=== PATIENT | male | born 1940 | race Caucasian/White ===

== ENCOUNTER 2016-05-22 13:01 | Inpatient (IN) | payer MEDICARE, BC ==
[~2016-05-22] VITALS: Ht 172.7 cm; Wt 75.7 kg
[2016-05-22] MEDS ORDERED: MAG HYDROX/AL HYDROX/SIMETH 30 ML UDC PO PRN (13:30)
[2016-05-22] MEDS ORDERED: MAGNESIUM HYDROXIDE 30 ML UDC PO PRN (13:30)
[2016-05-22] MEDS ORDERED: SIMV5TAB6 PO (13:54)
[2016-05-22] MEDS ORDERED: ASPI81TA2 PO (13:54)
[2016-05-22] MEDS ORDERED: AMLO2.5T PO (13:54)
[2016-05-22] MEDS ORDERED: QUET25TA PO ×2 (14:09)
[2016-05-22] MEDS ORDERED: TERA2CAP4 PO (14:09)
[2016-05-22] MEDS ORDERED: OLAN2.5T3 PO (14:09)
[2016-05-22 16:00] VITALS: BP 109/66
[2016-05-22 19:57] VITALS: BP 138/86
[2016-05-22] MEDS: QUETIAPINE FUMARATE 25 MG TABLET PO SCH (21:42)
[2016-05-22] MEDS: SIMVASTATIN 10 MG TABLET PO SCH (21:47)
[2016-05-22] MEDS: TERAZOSIN HCL 5 MG CAPSULE PO SCH (21:51)
[2016-05-22] MEDS: LORAZEPAM 0.5 MG TABLET PO PRN (23:26)
[2016-05-22] MEDS: TEMAZEPAM 7.5 MG CAPSULE PO PRN (23:27)
[2016-05-23 07:51] LABS: ALBUMIN 4.5 g/dL (3.4-5.0); BILIRUBIN,TOTAL 0.6 mg/dL (0.2-1.0); CALCIUM, SERUM 9.3 mg/dL (8.5-10.1); POTASSIUM 4.7 mmol/L (3.5-5.1); TOTAL PROTEIN, SERUM 7.6 g/dL (6.4-8.2)
[2016-05-23 08:00] VITALS: BP 135/84
[2016-05-23] MEDS: AMLODIPINE BESYLATE 2.5 MG TABLET PO SCH (08:01)
[2016-05-23] MEDS: VENLAFAXINE XR 37.5 MG CAP.SR.24H PO SCH (08:02)
[2016-05-23] MEDS: ASPIRIN 81 MG TAB.CHEW PO SCH (08:02)
[2016-05-23] MEDS: LORAZEPAM 0.5 MG TABLET PO PRN ×2 (08:02→23:02)
[2016-05-23 16:00] VITALS: BP 127/83
[2016-05-23 19:45] VITALS: BP 136/80
[2016-05-23] MEDS: TERAZOSIN HCL 5 MG CAPSULE PO SCH (21:17)
[2016-05-23] MEDS: QUETIAPINE FUMARATE 25 MG TABLET PO SCH (21:17)
[2016-05-23] MEDS: SIMVASTATIN 10 MG TABLET PO SCH (21:18)
[2016-05-23] MEDS: TEMAZEPAM 7.5 MG CAPSULE PO PRN (21:18)
[2016-05-23] MEDS: ACETAMINOPHEN 325 MG TABLET PO PRN (21:19)
[2016-05-24 07:04] LABS: BASOPHILS % (AUTO) 0.4 % (0.0-2.0); DIFF TOTAL % 100 %; EOSINOPHILS # (AUTO) 0.1 /CMM (0.0-0.7); EOSINOPHILS % (AUTO) 0.9 % (0.0-6.0); HEMATOCRIT 42 % (39-51); HEMOGLOBIN 13.9 g/dL (13.5-17.5); LYMPHOCYTES # (AUTO) 1.4 /CMM (0.8-4.8); LYMPHOCYTES % (AUTO) 14.5 % (20.0-44.0); MEAN CORPUSCULAR HEMOGLOBIN 30 PG (26.0-33.0); MEAN CORPUSCULAR HGB CONC 33 g/dl (31.0-36.0); MEAN CORPUSCULAR VOLUME 89 fL (80-96); MONOCYTES # (AUTO) 0.7 /CMM (0.1-1.30); MONOCYTES % (AUTO) 7.4 % (2.0-12.0); NEUTROPHILS # (AUTO) 7.2 /CMM (1.8-8.9); NEUTROPHILS % (AUTO) 76.8 % (43.0-81.0); PLATELET COUNT (AUTO) 294 /CMM (150-450); RED BLOOD CELL COUNT(AUTO) 4.69 MIL/uL (4.5-6.0); WHITE BLOOD COUNT (AUTO) 9.3 K/uL (4.3-11.0)
[2016-05-24 07:22] LABS: CREATININE 2.3 mg/dL (0.6-1.3); POTASSIUM 4.7 mmol/L (3.5-5.1)
[2016-05-24 08:00] VITALS: BP 112/72
[2016-05-24] MEDS: VENLAFAXINE XR 37.5 MG CAP.SR.24H PO SCH (09:00)
[2016-05-24] MEDS: ASPIRIN 81 MG TAB.CHEW PO SCH (09:00)
[2016-05-24] MEDS ORDERED: QUETIAPINE FUMARATE 25 MG TABLET PO SCH (09:00)
[2016-05-24] MEDS: AMLODIPINE BESYLATE 2.5 MG TABLET PO SCH (09:00)
[2016-05-24] MEDS ORDERED: HALOPERIDOL LACTATE INJ 5 MG/ML VIAL IM ONE (09:30)
[2016-05-24] MEDS ORDERED: diphenhydrAMINE HCL 50 MG/ML VIAL IM ONE (09:30)
[2016-05-24] MEDS ORDERED: LORAZEPAM INJ 2 MG/ML VIAL IM ONE (09:30)
[2016-05-24 16:00] VITALS: BP 152/66
[2016-05-24] MEDS: QUETIAPINE FUMARATE 25 MG TABLET PO SCH (17:00)
[2016-05-24 20:06] VITALS: BP 137/82
[2016-05-24 20:54] LABS: ADD UA MICROSCOPIC NO; KETONES,URINE NEGATIVE (NEGATIVE); LEUKOCYTE ESTERASE ,URINE NEGATIVE (NEGATIVE); PH,URINE 5.5 (5.0-8.0)
[2016-05-24 20:59] LABS: CANNABINOID, URINE NEGATIVE (NEGATIVE); PHENCYCLIDINE SCREEN,URINE NEGATIVE (NEGATIVE)
[2016-05-24 21:05] LABS: CREATININE, URINE 388.3 MG/DL (30.0-125.0)
[2016-05-24] MEDS: TERAZOSIN HCL 5 MG CAPSULE PO SCH (21:42)
[2016-05-24] MEDS: SIMVASTATIN 10 MG TABLET PO SCH (21:43)
[2016-05-25 06:51] LABS: CALCIUM, SERUM 8.8 mg/dL (8.5-10.1); CREATININE 1.5 mg/dL (0.6-1.3); POTASSIUM 4.5 mmol/L (3.5-5.1)
[2016-05-25 08:00] VITALS: BP 123/74
[2016-05-25] MEDS: CYANOCOBALAMIN 1,000 MCG/ML VIAL IM SCH (09:00)
[2016-05-25] MEDS: ASPIRIN 81 MG TAB.CHEW PO SCH (09:00)
[2016-05-25] MEDS: QUETIAPINE FUMARATE 25 MG TABLET PO SCH ×3 (09:00→17:00)
[2016-05-25] MEDS: AMLODIPINE BESYLATE 2.5 MG TABLET PO SCH (09:00)
[2016-05-25] MEDS: VENLAFAXINE XR 37.5 MG CAP.SR.24H PO SCH (09:00)
[2016-05-25 16:10] VITALS: BP 135/75
[2016-05-25 20:07] VITALS: BP 128/75
[2016-05-25] MEDS: TEMAZEPAM 7.5 MG CAPSULE PO PRN (21:19)
[2016-05-25] MEDS: SIMVASTATIN 10 MG TABLET PO SCH (21:19)
[2016-05-25] MEDS: TERAZOSIN HCL 5 MG CAPSULE PO SCH (21:19)
[2016-05-25] MEDS: ACETAMINOPHEN 325 MG TABLET PO PRN (21:20)
[2016-05-26 08:00] VITALS: BP 111/62
[2016-05-26] MEDS: CYANOCOBALAMIN 1,000 MCG/ML VIAL IM SCH (08:28)
[2016-05-26] MEDS: QUETIAPINE FUMARATE 25 MG TABLET PO SCH ×3 (08:28→17:34)
[2016-05-26] MEDS: VENLAFAXINE XR 37.5 MG CAP.SR.24H PO SCH (08:28)
[2016-05-26] MEDS: AMLODIPINE BESYLATE 2.5 MG TABLET PO SCH (08:29)
[2016-05-26] MEDS: ASPIRIN 81 MG TAB.CHEW PO SCH (08:29)
[2016-05-26] MEDS: LORAZEPAM 0.5 MG TABLET PO PRN (08:30)
[2016-05-26 09:48] LABS: CALCIUM, SERUM 8.2 mg/dL (8.5-10.1); CREATININE 1.1 mg/dL (0.6-1.3); PHOSPHORUS 3.2 mg/dL (2.5-4.9)
[2016-05-26 14:11] LABS: URINE SODIUM, RANDOM 60 mmol/l (40-220)
[2016-05-26 16:00] VITALS: BP 132/74
[2016-05-26 20:00] VITALS: BP 119/71
[2016-05-26] MEDS: SIMVASTATIN 10 MG TABLET PO SCH (21:19)
[2016-05-26] MEDS: TERAZOSIN HCL 5 MG CAPSULE PO SCH (21:19)
[2016-05-27 07:29] LABS: CALCIUM, SERUM 8.5 mg/dL (8.5-10.1); CREATININE 1.2 mg/dL (0.6-1.3); POTASSIUM 4.7 mmol/L (3.5-5.1)
[2016-05-27 08:00] VITALS: BP 114/71
[2016-05-27] MEDS: CYANOCOBALAMIN 1,000 MCG/ML VIAL IM SCH (09:41)
[2016-05-27] MEDS: VENLAFAXINE XR 37.5 MG CAP.SR.24H PO SCH (09:42)
[2016-05-27] MEDS: ASPIRIN 81 MG TAB.CHEW PO SCH (09:42)
[2016-05-27] MEDS: AMLODIPINE BESYLATE 2.5 MG TABLET PO SCH (09:42)
[2016-05-27] MEDS: QUETIAPINE FUMARATE 25 MG TABLET PO SCH ×3 (09:42→16:27)
[2016-05-27 16:00] VITALS: BP 121/74
[2016-05-27 20:00] VITALS: BP 113/72
[2016-05-27] MEDS: TERAZOSIN HCL 5 MG CAPSULE PO SCH (21:40)
[2016-05-27] MEDS: SIMVASTATIN 10 MG TABLET PO SCH (21:41)
[2016-05-28 08:00] VITALS: BP 117/74
[2016-05-28 08:39] LABS: BASOPHILS % (AUTO) 0.4 % (0.0-2.0); DIFF TOTAL % 100 %; EOSINOPHILS # (AUTO) 0.1 /CMM (0.0-0.7); EOSINOPHILS % (AUTO) 1.8 % (0.0-6.0); HEMATOCRIT 42 % (39-51); HEMOGLOBIN 14.1 g/dL (13.5-17.5); LYMPHOCYTES # (AUTO) 1.4 /CMM (0.8-4.8); LYMPHOCYTES % (AUTO) 24.6 % (20.0-44.0); MEAN CORPUSCULAR HEMOGLOBIN 30 PG (26.0-33.0); MEAN CORPUSCULAR HGB CONC 34 g/dl (31.0-36.0); MEAN CORPUSCULAR VOLUME 88 fL (80-96); MONOCYTES # (AUTO) 0.5 /CMM (0.1-1.30); NEUTROPHILS # (AUTO) 3.8 /CMM (1.8-8.9); NEUTROPHILS % (AUTO) 65.2 % (43.0-81.0); PLATELET COUNT (AUTO) 225 /CMM (150-450); RED BLOOD CELL COUNT(AUTO) 4.74 MIL/uL (4.5-6.0); WHITE BLOOD COUNT (AUTO) 5.8 K/uL (4.3-11.0)
[2016-05-28 08:44] LABS: CALCIUM, SERUM 8.4 mg/dL (8.5-10.1); CREATININE 1.1 mg/dL (0.6-1.3); PHOSPHORUS 3.1 mg/dL (2.5-4.9); POTASSIUM 4.2 mmol/L (3.5-5.1)
[2016-05-28] MEDS: CYANOCOBALAMIN 1,000 MCG/ML VIAL IM SCH (09:03)
[2016-05-28] MEDS: QUETIAPINE FUMARATE 25 MG TABLET PO SCH ×3 (09:04→17:00)
[2016-05-28] MEDS: VENLAFAXINE XR 37.5 MG CAP.SR.24H PO SCH (09:05)
[2016-05-28] MEDS: AMLODIPINE BESYLATE 2.5 MG TABLET PO SCH (09:06)
[2016-05-28] MEDS: ASPIRIN 81 MG TAB.CHEW PO SCH (09:10)
[2016-05-28 16:00] VITALS: BP 132/71
[2016-05-28 18:50] VITALS: BP 117/74
[2016-05-28 20:00] VITALS: BP 110/70
[2016-05-28] MEDS: TERAZOSIN HCL 5 MG CAPSULE PO SCH (20:50)
[2016-05-28] MEDS: SIMVASTATIN 10 MG TABLET PO SCH (20:51)
[2016-05-29 08:00] VITALS: BP 128/76
[2016-05-29] MEDS: VENLAFAXINE XR 37.5 MG CAP.SR.24H PO SCH (08:26)
[2016-05-29] MEDS: CYANOCOBALAMIN 1,000 MCG/ML VIAL IM SCH (08:26)
[2016-05-29] MEDS: ASPIRIN 81 MG TAB.CHEW PO SCH (08:26)
[2016-05-29] MEDS: AMLODIPINE BESYLATE 2.5 MG TABLET PO SCH (08:27)
[2016-05-29] MEDS: QUETIAPINE FUMARATE 25 MG TABLET PO SCH (08:27)
[2016-05-29] MEDS: QUETIAPINE FUMARATE 100 MG TABLET PO SCH ×2 (12:59→16:23)
[2016-05-29 15:52] VITALS: BP_SYST 140; BP_SYST 149; BP_DIAS 75
[2016-05-29 19:49] VITALS: BP 139/79
[2016-05-29] MEDS: TERAZOSIN HCL 5 MG CAPSULE PO SCH (21:45)
[2016-05-29] MEDS: TEMAZEPAM 7.5 MG CAPSULE PO PRN (21:45)
[2016-05-29] MEDS: SIMVASTATIN 10 MG TABLET PO SCH (21:45)
[2016-05-30 08:00] VITALS: BP 129/70
[2016-05-30] MEDS: QUETIAPINE FUMARATE 100 MG TABLET PO SCH ×3 (08:34→18:00)
[2016-05-30] MEDS: CYANOCOBALAMIN 1,000 MCG/ML VIAL IM SCH (08:34)
[2016-05-30] MEDS: ASPIRIN 81 MG TAB.CHEW PO SCH (08:34)
[2016-05-30] MEDS: AMLODIPINE BESYLATE 2.5 MG TABLET PO SCH (08:35)
[2016-05-30] MEDS: VENLAFAXINE XR 37.5 MG CAP.SR.24H PO SCH (08:35)
[2016-05-30 16:00] VITALS: BP 152/87
[2016-05-30 19:44] VITALS: BP 125/82
[2016-05-30] MEDS: TERAZOSIN HCL 5 MG CAPSULE PO SCH (21:45)
[2016-05-30] MEDS: SIMVASTATIN 10 MG TABLET PO SCH (21:47)
[2016-05-30] MEDS: TEMAZEPAM 7.5 MG CAPSULE PO PRN (22:24)
[2016-05-31 08:00] VITALS: BP 112/63
[2016-05-31] MEDS: ASPIRIN 81 MG TAB.CHEW PO SCH (08:09)
[2016-05-31] MEDS: QUETIAPINE FUMARATE 100 MG TABLET PO SCH ×3 (08:09→16:55)
[2016-05-31] MEDS: VENLAFAXINE XR 37.5 MG CAP.SR.24H PO SCH (08:09)
[2016-05-31] MEDS: AMLODIPINE BESYLATE 2.5 MG TABLET PO SCH (08:10)
[2016-05-31] MEDS: CYANOCOBALAMIN 1,000 MCG/ML VIAL IM SCH (08:11)
[2016-05-31 16:00] VITALS: BP 143/64
[2016-05-31 20:00] VITALS: BP 126/80
[2016-05-31] MEDS: TERAZOSIN HCL 5 MG CAPSULE PO SCH (21:31)
[2016-05-31] MEDS: SIMVASTATIN 10 MG TABLET PO SCH (21:32)
[2016-06-01 08:00] VITALS: BP 139/82
[2016-06-01] MEDS: VENLAFAXINE XR 37.5 MG CAP.SR.24H PO SCH (08:21)
[2016-06-01] MEDS: CYANOCOBALAMIN 1,000 MCG/ML VIAL IM SCH (08:21)
[2016-06-01] MEDS: QUETIAPINE FUMARATE 100 MG TABLET PO SCH (08:21)
[2016-06-01] MEDS: ASPIRIN 81 MG TAB.CHEW PO SCH (08:21)
[2016-06-01 08:22] VITALS: BP 139/65
[2016-06-01] MEDS: AMLODIPINE BESYLATE 2.5 MG TABLET PO SCH (08:22)
== END 2016-06-01 12:00 | disposition home or self-care (01) | DRG 885 ==
LOC: GPS 13:01
PROVIDERS: ADMIT Psychiatry & Neurology Psychiatry; ATTEND Internal Medicine
DX: F32.3 Major depressive disorder, single episode, severe with psychotic features (principal); N17.0 Acute kidney failure with tubular necrosis; G93.40 Encephalopathy, unspecified; I12.9 Hypertensive chronic kidney disease with stage 1 through stage 4 chronic kidney disease, or unspecified chronic kidney disease; E78.5 Hyperlipidemia, unspecified; F29 Unspecified psychosis not due to a substance or known physiological condition; I25.10 Atherosclerotic heart disease of native coronary artery without angina pectoris; K21.9 Gastro-esophageal reflux disease without esophagitis; Z73.6 Limitation of activities due to disability; N18.2 Chronic kidney disease, stage 2 (mild)
CPT/HCPCS: 36415; 71010-TC; 80048-TC; 80053-TC; 80061-TC; 80305; 81000-TC; 82570-TC; 82962-TC; 83735-TC; 83935-TC; 84100-TC; 84300-TC; 84443-TC; 85025-TC; 87081-TC; 95819-TC; J1200; J1630; J2060; J3420; Z7610